=== PATIENT | male | born 1985 | race Caucasian/White ===

== ENCOUNTER 2018-10-22 08:58 | Emergency (ER) | payer SELFPAY | END 2018-10-22 09:16 | disposition home or self-care (01) | LOC: MADERS 08:58 | DX: S39.012A Strain of muscle, fascia and tendon of lower back, initial encounter (principal); F17.210 Nicotine dependence, cigarettes, uncomplicated; X58.XXXA Exposure to other specified factors, initial encounter | CPT/HCPCS: 99283 ==

== ENCOUNTER 2023-02-27 05:26 | Emergency (ER) | payer SELFPAY ==
[2023-02-27] MEDS ORDERED: Ibuprofen 800 MG TAB ONE (05:37)
[2023-02-27] MEDS ORDERED: Acetaminophen 500 MG TAB ONE (06:28)
[2023-02-27] MEDS ORDERED: Ondansetron ODT 4 MG TAB ONE (06:28)
[2023-02-27] MEDS ORDERED: Mag-Al Plus 1200 MG/1200 MG/120 MG/30 ML UDCUP ONE (06:29)
[2023-02-27] MEDS ORDERED: Lidocaine 2% Viscous 100 ML BOTTLE ONE (06:30)
[2023-02-27 06:51] LABS: Hematocrit 42.7 % (42.0-52.0); Mean Corpuscular HGB CONC 32.9 g/dL (32.0-36.0); Mean Corpuscular Hemoglobin 30.1 pg (27.0-31.0); Mean Corpuscular Volume 91.4 fl (78.0-98.0); Mean Platelet Volume 7.6 fL (7.4-10.4); Platelet Count 182 10x3/uL (130-400); Red Blood Cell (RBC) Count 4.67 mill/uL (4.70-6.10); White Blood Cell (WBC) Count 6.1 10x3/uL (4.8-10.8)
[2023-02-27 06:54] LABS: Band 2 % (5-11); Lymphocytes 20 % (21-51); Manual Diff?? YES; Neutrophil 73 % (42-75)
[2023-02-27 06:55] LABS: ALT (SGPT) 85 U/L (8-55); AST (SGOT) 48 U/L (5-34); Albumin 4.3 g/dL (3.5-5.0); Alkaline Phosphatase 55 U/L (40-110); Anion Gap 12 mmol/L (10-20); BUN (Urea Nitrogen) 21 mg/dL (8.9-20.6); Bilirubin, Total 0.7 mg/dL (0.2-1.2); Calc. Creatinine Clearance 0 mL/min (70-130); Calcium 8.5 mg/dL (7.8-10.44); Carbon Dioxide 18 mmol/L (22-29); Chloride 108 mmol/L (98-107); Estimated GFR 122; Globulin 2.3 g/dL (2.4-3.5); Glucose 95 mg/dL (70-105); Lipase 12 U/L (8-78); Monocytes 5 % (0-10); Potassium 3.7 mmol/L (3.5-5.1); Protein, Total 6.6 g/dL (6.0-8.3); Sodium 134 mmol/L (136-145)
[2023-02-27 06:56] LABS: Anisocytosis SLIGHT = 6-15 cells (100X) (0-5/hpf); Platelet Adequacy Comment Appears Adequate
[2023-02-27 07:00] LABS: MDiff Complete? YES
[2023-02-27 07:01] LABS: Troponin I Less than 0.010 ng/mL (< 0.028)
[2023-02-27 12:44] LABS: HIV (1/2) Antibody/Antigen Non-Reactive (NonReactive); HIV 1/2 INDEX 0.28 S/CO (<1.00)
== END 2023-02-27 08:05 | disposition home or self-care (01) ==
LOC: MADERS 05:26
DX: R50.9 Fever, unspecified (principal); R07.9 Chest pain, unspecified; R19.7 Diarrhea, unspecified; F17.210 Nicotine dependence, cigarettes, uncomplicated
CPT/HCPCS: 71046; 80053; 83690; 84484; 85025; 87389; 87804; 93005; 94760; Q0162

== ENCOUNTER 2023-11-27 10:37 | Emergency (ER) | payer SELFPAY ==
[2023-11-27] MEDS ORDERED: Ibuprofen 800 MG TAB ONE (11:07)
[2023-11-28 12:58] LABS: SARS-CoV-2 N1 Negative; SARS-CoV-2 N2 Negative; SARS-CoV-2 RNAse P1 Positive; SARS-CoV-2 RNAse P2 Positive
== END 2023-11-27 11:52 | disposition home or self-care (01) ==
LOC: MADERS 10:37
DX: J06.9 Acute upper respiratory infection, unspecified (principal); M79.10 Myalgia, unspecified site; F17.290 Nicotine dependence, other tobacco product, uncomplicated; F17.210 Nicotine dependence, cigarettes, uncomplicated
CPT/HCPCS: 87635; 87804; 99283

== ENCOUNTER 2024-01-30 08:53 | Emergency (ER) | payer SELFPAY ==
[2024-01-30] MEDS ORDERED: Ondansetron ODT 4 MG TAB ONE (09:06)
[2024-01-30] MEDS ORDERED: Ibuprofen 200 MG TAB ONE (09:06)
== END 2024-01-30 09:13 | disposition home or self-care (01) ==
LOC: MADERS 08:53
DX: B34.9 Viral infection, unspecified (principal); F17.290 Nicotine dependence, other tobacco product, uncomplicated; F17.210 Nicotine dependence, cigarettes, uncomplicated; Z55.6 Problems related to health literacy
CPT/HCPCS: 99283; Q0162

== ENCOUNTER 2024-10-30 03:37 | Emergency (ER) | payer OTHER, SELFPAY ==
[2024-10-30] MEDS ORDERED: CEFAZOLIN 1 GM VIAL ONE (04:21)
[2024-10-30] MEDS ORDERED: cefTRIAXone (ROCEPHIN) 1 GM VIAL ONE (04:21)
[2024-10-30] MEDS ORDERED: Boostrix 0.5 ML (Tdap) VIAL (>/=7 yrs of age) ONE (04:21)
[2024-10-30 04:27] LABS: #Basophils 0.1 thou/uL (0.0-0.2); #Eosinophils 0.2 thou/uL (0.0-0.7); #Lymphocytes 1.8 thou/uL (1.20-3.40); #Monocytes 0.5 thou/uL (0.11-0.59); #Neutrophils 4.6 thou/uL (1.40-6.50); %Basophils 1.3 % (0.0-1.0); %Eosinophils 2.5 % (0.0-10.0); %Lymphocytes 25.1 % (21.0-51.0); %Monocytes 7.5 % (0.0-10.0); %Neutrophils 63.5 % (42.0-75.0); Hematocrit 39.7 % (42.0-52.0); Hemoglobin 13.5 g/dL (14.0-18.0); Mean Corpuscular Hemoglobin 29.4 pg (27.0-31.0); Mean Corpuscular Volume 86.2 fl (78.0-98.0); Platelet Count 235 10x3/uL (130-400); Red Blood Cell (RBC) Count 4.60 mill/uL (4.70-6.10); White Blood Cell (WBC) Count 7.2 10x3/uL (4.8-10.8)
[2024-10-30 04:45] LABS: ALT (SGPT) 24 U/L (Less than 45); AST (SGOT) 24 U/L (11-34); Albumin 4.5 g/dL (3.1-4.5); Alkaline Phosphatase 62 U/L (40-110); Anion Gap 13 mmol/L (10-20); BUN (Urea Nitrogen) 25 mg/dL (8.9-20.6); Bilirubin, Total 0.3 mg/dL (0.3-1.2); Calc. Creatinine Clearance 0 mL/min (70-130); Calcium 8.9 mg/dL (7.8-10.44); Carbon Dioxide 23 mmol/L (22-29); Chloride 111 mmol/L (98-107); Globulin 2.3 g/dL (2.4-3.5); Glucose 107 mg/dL (70-105); Potassium 3.7 mmol/L (3.5-5.1); Sodium 143 mmol/L (136-145)
== END 2024-10-30 05:37 | disposition short-term general hospital (02) ==
LOC: MADERS 03:37
DX: S68.114A Complete traumatic metacarpophalangeal amputation of right ring finger, initial encounter (principal); F17.290 Nicotine dependence, other tobacco product, uncomplicated; F17.210 Nicotine dependence, cigarettes, uncomplicated; W23.0XXA Caught, crushed, jammed, or pinched between moving objects, initial encounter; Y99.0 Civilian activity done for income or pay
CPT/HCPCS: 64450; 80053; 85025; 90471; 90715; 96365; 96375; J0665; J0690; J0696